=== PATIENT | female | born 1965 | race Caucasian/White ===

== ENCOUNTER 2021-09-29 18:05 | Emergency (ER) | payer MEDICARE, MEDICAID ==
[~2021-09-29] VITALS: Ht 182.9 cm; Wt 120.0 kg
[~2021-09-29 18:05] MED LIST: HYDR-4353 PO; IBUP-1984 PO; LORA1TAB PO; METH4TAB81 PO
[2021-09-29 18:13] VITALS: BP 141/75
[2021-09-29] MEDS ORDERED: CEPH-585 PO (20:05)
[2021-09-29] MEDS ORDERED: CEPH500C2 PO (20:53)
== END 2021-09-29 20:28 | disposition home or self-care (01) ==
LOC: ER 18:05
DX: L03.211 Cellulitis of face (principal); Z79.2 Long term (current) use of antibiotics; Z79.899 Other long term (current) drug therapy
CPT/HCPCS: 99283

== ENCOUNTER 2023-08-02 07:55 | Inpatient (IN) | payer MEDICARE, MEDICAID ==
[2023-07-27 11:33] LABS: BASOPHILS % (AUTO) 0.7 % (0-1); EOSINOPHILS # (AUTO) 0.2 X10'3 (0-0.9); EOSINOPHILS % (AUTO) 4.6 % (0-6); LYMPHOCYTES # (AUTO) 1.9 X10'3 (1.1-4.8); LYMPHOCYTES % (AUTO) 44.5 % (21-51); MEAN CORPUSCULAR HEMOGLOBIN 30.8 PG (27.0-31.0); MEAN CORPUSCULAR HGB CONC 33.6 g/dL (33.0-36.5); MEAN CORPUSCULAR VOLUME 91.7 FL (78-98); MEAN PLATELET VOLUME 8.4 FL (7.4-10.4); MONOCYTES # (AUTO) 0.4 X10'3 (0-0.9); MONOCYTES % (AUTO) 9.4 % (2-12); NEUTROPHILS # (AUTO) 1.7 X10'3 (1.8-7.7); NEUTROPHILS % (AUTO) 40.8 % (42-75); PRE OP HEMATOCRIT 39.8 % (35.0-45.0); PRE OP HEMOGLOBIN 13.4 g/dL (12.0-16.0); PRE OP PLATELET COUNT 219 X10'3 (140-440); PRE OP WHITE BLOOD COUNT 4.2 10'3 (4.8-10.8); RED BLOOD COUNT 4.34 X10'6 (4.20-5.60); RED CELL DISTRIBUTION WIDTH 13.3 % (11.5-14.5)
[2023-07-27 11:46] LABS: ALBUMIN 4.2 G/DL (3.4-5.0); ALBUMIN/GLOBULIN RATIO 1.4 (1.1-1.5); ALKALINE PHOSPHATASE 71 IU/L (46-116); BLOOD UREA NITROGEN 17 MG/DL (7-18); BUN/CREATININE RATIO 23.3 (10.0-20.0); CALCIUM 9.3 MG/DL (8.5-10.1); CHLORIDE 107 MMOL/L (99-107); CREATININE 0.73 MG/DL (0.40-0.90); PRE OP ALT 52 U/L (30-65); PRE OP ANION GAP 0 (8-16); PRE OP AST 38 U/L (10-37); PRE OP BILIRUB, TOTAL 0.5 MG/DL (0.0-1.0); PRE OP GLUCOSE 104 MG/DL (70-104); PRE OP POTASSIUM 4.1 MMOL/L (3.4-5.1); PRE OP SODIUM 137 MMOL/L (135-145); TOTAL CARBON DIOXIDE 30.2 MMOL/L (24-32); TOTAL PROTEIN 7.2 G/DL (6.4-8.2); eGFR 82 ML/MIN
[~2023-08-02] VITALS: Ht 182.9 cm; Wt 114.7 kg
[2023-08-02] VITALS (30 sets, daily range): BP systolic 96–162; BP diastolic 43–90; PULSE 53–79; RESP 9–18; TEMP 97.6–98.4; O2SAT 93–100
[~2023-08-02 07:55] MED LIST changes: -IBUP-1984 PO; -LORA1TAB PO; -METH4TAB81 PO; +cefazolin 2gm/D5W 100mL 100 ML IV ONE; +famotidine 20mg tablet PO ONE; +ringers solution, lacted 1,000 ML IV SCH; +tranexamic acid 650mg tablet PO ONE; +vancomycin 1,500 MG in NS 300ml IV soln IV ONE
[2023-08-02] MEDS ORDERED: BUPIVACAINE/MELOXICAM 14 ML VIAL IL ONE ×2 (10:08→12:38)
[2023-08-02] MEDS ORDERED: BUPIVAcaine/dex-water/PF 7.5 mg/ml 2ml ampul ONE (11:08)
[2023-08-02] MEDS ORDERED: tetracaine 1% (10mg/ml) pres. free inj. ONE (11:10)
[2023-08-02] MEDS ORDERED: fentaNYL/PF 50MCG/1 ML 2ML syringe ONE (11:11)
[2023-08-02] MEDS ORDERED: midazolam 1 mg/ML 2ml injection ONE (11:11)
[2023-08-02] MEDS ORDERED: ROPIVAcaine 0.5% (5mg/ml) 30ml vial ONE (12:02)
[2023-08-02] MEDS ORDERED: dexamethasone sod phosphate 4mg/ml inj. ONE (12:02)
[2023-08-02] MEDS ORDERED: ePHEDrine 50MG/ML INJ. ONE (12:02)
[2023-08-02] MEDS ORDERED: propofol inj 20 ML IV ONE ×3 (12:02)
[2023-08-02] MEDS ORDERED: 0.9 % SODIUM CHLORIDE 10 ML VIAL ONE (12:02)
[2023-08-02] MEDS ORDERED: naloxone 0.4 mg/ml inj IV PRN (13:20)
[2023-08-02] MEDS ORDERED: HYDROmorphone inj. 0.5 MG/0.5 ML DISP.SYRIN IV PRN (13:20)
[2023-08-02] MEDS ORDERED: diphenhydrAMINE 25mg capsule PO PRN ×2 (13:20)
[2023-08-02] MEDS ORDERED: acetaminophen 325mg tablet PO PRN (13:20)
[2023-08-02] MEDS ORDERED: oxyCODONE IR 5mg (immed. release) tablet PO PRN (13:20)
[2023-08-02] MEDS ORDERED: magnesium hydroxide 30ml (MOM) UD suspension PO PRN (13:20)
[2023-08-02] MEDS ORDERED: HYDROmorphone 1 mg/ml syringe IV PRN (13:20)
[2023-08-02] MEDS ORDERED: bisacodyl 10mg suppository rectal RC PRN (13:20)
[2023-08-02] MEDS ORDERED: ondansetron/PF 4mg/2ml inj IV PRN ×2 (13:20→13:25)
[2023-08-02] MEDS ORDERED: hydrALAZINE 20mg/ml inj. IV PRN (13:25)
[2023-08-02] MEDS ORDERED: labetalol 20mg/4ml (5mg/ml) syringe IV PRN (13:25)
[2023-08-02] MEDS ORDERED: ketorolac trometh. 30mg/ml inj. IV ONE (13:25)
[2023-08-02] MEDS ORDERED: meperidine/PF 25mg/ml syringe IV PRN ×3 (13:25)
[2023-08-02] MEDS ORDERED: morphine 4 MG/ML inj SYRINge IV PRN (13:25)
[2023-08-02] MEDS ORDERED: acetaminophen 1,000mg/100ml IV 100 ML IV ONE (13:25)
[2023-08-02] MEDS ORDERED: morphine 2 MG/ML inj. syringe IV PRN (13:25)
[2023-08-02] MEDS ORDERED: ringers solution, lacted 1,000 ML IV SCH (13:25)
[2023-08-02] MEDS ORDERED: proCHLORperazine 10 MG/2 ml inj IV PRN (13:25)
--- NOTE | 2023-08-02 13:25 | NUR ---
Received from OR via BED, accompanied by Anesthesiologist DR SAEZ and report given by Anesthesiologist. PATIENT AWAKE, NO S/S OF PAIN, V/S WNL, SCD ON, 20G TO PATRICIAKatherineKENDELL drsg to RIGHT KNEE CDI with LEG WRAP AND POWDER PACK IN PLACE. GUEVARA CATHETER IN PLACE. PT HAS SENSATION AT APPROXIMATELY T8. WILL CONTINUE TO MONITOR Addendum: 08/02/23 at 1358 by Delia Barrera RN Amended: Links added.
[2023-08-02] MEDS: acetaminophen 325mg tablet PO SCH ×2 (14:00→20:48)
[2023-08-02] MEDS ORDERED: ceFAZolin/D5W- 1GM premix 50 ML IV SCH (16:00)
--- NOTE | 2023-08-02 16:25 | NUR ---
PATIENT HAS MET ALL CRITERIA FOR TRANSFER TO THE ORTHO FLOOR. VSS. ON ROOM AIR L KNEE DRESSING CDI. GUEVARA CATHETER IN PLACE. BED LOW, CALL LIGHT PRESENT AND 2 RAILS UP. RN PRESENT TO ACCEPT CARE OF PATIENT AND REPORT HAS BEEN CALLED TO PAULINO PIMENTEL. ALL QUESTIONS ANSWERED TO ACCEPTING RN. Addendum: 08/02/23 at 1650 by Delia Barrera RN Amended: Links added.
--- NOTE | 2023-08-02 16:45 | NUR ---
Patient in room ORTHO 4013. I have received report from Delia PIMENTEL from recovery and had the opportunity to ask questions and assume patient care.
--- NOTE | 2023-08-02 18:59 | NUR ---
Problems reprioritized. Patient report given, questions answered & plan of care reviewed with Cristela PIMENTEL.
[2023-08-02] MEDS: potassium cl 20mEq in 1/2 NS 1,000 ML IV SCH (19:21)
[2023-08-02] MEDS: ceFAZolin/D5W- 1GM premix 50 ML IV SCH (19:21)
[2023-08-02] MEDS ORDERED: vancomycin/NS 1 GM ADD-VANTAGE 250 ML IV SCH (20:00)
[2023-08-02] MEDS ORDERED: sennosides 8.6mg tablet PO SCH (21:00)
[2023-08-02] MEDS: oxyCODONE IR 5mg (immed. release) tablet PO PRN (23:40)
[2023-08-03 02:00] VITALS: BP 139/70; PULSE 67; RESP 18; TEMP 96.9; O2SAT 95
[2023-08-03] MEDS: acetaminophen 325mg tablet PO SCH ×2 (02:58→08:30)
[2023-08-03] MEDS: potassium cl 20mEq in 1/2 NS 1,000 ML IV SCH ×2 (03:01→05:20)
[2023-08-03] MEDS: ceFAZolin/D5W- 1GM premix 50 ML IV SCH (03:05)
[2023-08-03] MEDS: oxyCODONE IR 5mg (immed. release) tablet PO PRN (04:39)
[2023-08-03 06:00] VITALS: BP 146/54; PULSE 66; RESP 16; TEMP 97.7; O2SAT 97
--- NOTE | 2023-08-03 06:20 | NUR ---
Patient in room ORTHO 4013. I have received report from Cristela RN and had the opportunity to ask questions and assume patient care.
[2023-08-03 07:10] LABS: BASOPHILS % (AUTO) 0.1 % (0-1); EOSINOPHILS % (AUTO) 0 % (0-6); HEMOGLOBIN 11.8 g/dl (12.0-16.0); LYMPHOCYTES # (AUTO) 1.2 X10'3 (1.1-4.8); LYMPHOCYTES % (AUTO) 12.3 % (21-51); MEAN CORPUSCULAR HGB CONC 33.7 g/dL (33.0-36.5); MEAN PLATELET VOLUME 8.1 FL (7.4-10.4); MONOCYTES # (AUTO) 0.7 X10'3 (0-0.9); MONOCYTES % (AUTO) 7.5 % (2-12); NEUTROPHILS # (AUTO) 7.5 X10'3 (1.8-7.7); NEUTROPHILS % (AUTO) 80.1 % (42-75); PLATELET COUNT 204 X10'3 (140-440); RED BLOOD COUNT 3.81 X10'6 (4.20-5.60); RED CELL DISTRIBUTION WIDTH 13.1 % (11.5-14.5); WHITE BLOOD COUNT 9.4 X10'3 (4.5-11.0)
[2023-08-03 07:24] LABS: ANION GAP 5 (8-16); CHLORIDE 105 MMOL/L (99-107); POTASSIUM 4.2 MMOL/L (3.5-5.1); SODIUM 138 MMOL/L (135-145); TOTAL CARBON DIOXIDE 28.1 MMOL/L (24-32)
[2023-08-03 08:00] VITALS: RESP 16; O2SAT 97
[2023-08-03] MEDS ORDERED: aspirin 325mg tablet PO SCH (08:30)
[2023-08-03 10:00] VITALS: BP 117/42; PULSE 72; RESP 22; TEMP 97.9; O2SAT 96
[2023-08-03 10:20] VITALS: RESP 16
--- NOTE | 2023-08-03 10:44 | NUR ---
Patient assessment complete. All Primary care and medications will be done by Primary SANDER AND BUFFER Petra Addendum: 08/03/23 at 1055 by Lorene Vivar RN Advised primary [facility] to notify Geovanna Scanlon regarding patients dressing being saturated with blood not further bleeding at this time. See if PA would like dressing changed.
--- NOTE | 2023-08-03 11:06 | NUR ---
Per EMR pt POD #1 s/p left TKA. Written high protein education with ONS coupons and RD contact information mailed to patient's address found in EMR d/t short staffing. Will continue to follow and provide verbal education as able. Addendum: 08/03/23 at [address] Amended: Links added.
--- NOTE | 2023-08-03 13:00 | NUR ---
Patient discharged home today, A&Ox4. All discharge instructions were explained and questions were answered. IV removed with canula intact. All belongings were gathered and patient was wheel downstairs. Patient helped into private vehicle.
[2023-08-04] MEDS ORDERED: acetaminophen 325mg tablet PO PRN (13:20)
== END 2023-08-03 13:12 | disposition home or self-care (01) | DRG 470 ==
LOC: UNDOADMIN 07:55 → PAS IN 07:55 → UNDOADMIN 13:35 → ORTHO 4S 16:54 → PAS IN 16:54
PROVIDERS: ADMIT Orthopaedic Surgery; ATTEND Orthopaedic Surgery
PROC: 8E0Y0CZ Robotic Assisted Procedure of Lower Extremity, Open Approach (ICD-10-PCS; 2023-08-02)
PROC: 8E0YXBZ Computer Assisted Procedure of Lower Extremity (ICD-10-PCS; 2023-08-02)
PROC: 0SRD0J9 Replacement of Left Knee Joint with Synthetic Substitute, Cemented, Open Approach (ICD-10-PCS; principal; 2023-08-02 11:08)
DX: M17.12 Unilateral primary osteoarthritis, left knee (principal); M21.162 Varus deformity, not elsewhere classified, left knee; M25.762 Osteophyte, left knee
CPT/HCPCS: 36415; 80051; 80053; 85025; 87070; 87075; 87081; 97116; 97161; 97530; A4215; A6258; A6449; A7000; C1713; C1776; G0378; J0131; J0690; J1100; J1885; J2250; J2704; J2795; J3010; J3370; J3480; J3490; J7120